=== PATIENT | female | born 1945 | race Caucasian/White ===

== ENCOUNTER 2016-11-11 07:49 | Day surgery (SDC) | payer MEDICARE ==
[~2016-11-11] VITALS: Ht 149.9 cm; Wt 65.8 kg
[~2016-11-11 07:49] MED LIST: AMLODIPINE BESYL5 MG PO; ASPIRIN CHEWABL81 MG PO; ATORVASTATIN CA10 MG PO; AUGMENTIN875TAB PO; BACLOFEN10 MG PO; BACTRIM DS1 TAB PO; BENADRYL ALLERG25 M1 PO; BENZONATATE200 MG PO; CELEXA20 MG PO; CELEXA40 M1 PO; CHOLESTYRAMINE4 G1 PO; CITALOPRAM10 MG PO; CITALOPRAM20 MG PO; CITALOPRAM40 MG PO; CRESTOR20 MG PO; FLONASE NASAL50 MCG; FLORASTOR250 M1 PO; FLUTICASONE50 MCG; GINKGO BILOB30 M1 PO; LOSARTAN POT50 MG PO; MUCINEX600 MG PO; MULTI PO; NEXIUM40 M1 PO; OMEGA-3 FISH1000 MG PO; PHENERGAN12.5 MG/TA PO; PREDNISONE20 MG PO; PREVACID30 M1 PO; PROMETHAZINE12.5 MG PO; RANITIDINE150 M1 PO; TENIVAC1 ML IM; VITAMIN D32000 UNIT PO; ZETIA10 MG PO; ZOCOR20 M1 PO; ZOLOFT100 MG PO; ZOLOFT50 MG PO; [UNRECOGNIZED DRUG - OTHER]
[2016-11-11 10:03] VITALS: BP 135/60
== END 2016-11-11 10:20 | disposition home or self-care (01) ==
LOC: ENDO 07:49 → ORM 11:20 → ENDO 11:20 → ORM 17:15
PROVIDERS: ATTEND Internal Medicine Gastroenterology
PROC: 0DB48ZX Excision of Esophagogastric Junction, Via Natural or Artificial Opening Endoscopic, Diagnostic (ICD-10-PCS; principal; 2016-11-11)
PROC: 0DB68ZX Excision of Stomach, Via Natural or Artificial Opening Endoscopic, Diagnostic (ICD-10-PCS; 2016-11-11)
DX: R14.0 Abdominal distension (gaseous) (principal); R11.0 Nausea; K21.9 Gastro-esophageal reflux disease without esophagitis; K29.70 Gastritis, unspecified, without bleeding; K31.7 Polyp of stomach and duodenum; K44.9 Diaphragmatic hernia without obstruction or gangrene; I10 Essential (primary) hypertension; E78.00 Pure hypercholesterolemia, unspecified

== ENCOUNTER 2016-11-20 16:38 | Emergency (ER) | payer MEDICARE ==
[~2016-11-20] VITALS: Ht 149.9 cm; Wt 65.0 kg
[2016-11-20 17:20] LABS: HEMATOCRIT 39.8 % (37.0-47.0); HEMOGLOBIN 13.3 g/dl (12.0-16.0); IMMATURE GRANULOCYTES 0.4 % (0.0-1.0); MEAN CELL VOLUME 87.9 fL CALC (80.0-100.0); MEAN CORPUSCULAR HGB 29.4 pG CALC (26.0-32.0); MEAN CORPUSCULAR HGB CONC 33.4 g/L CALC (32.0-36.0); NEUT# 6.61 thou/uL (2.00-7.15); RED BLOOD COUNT 4.53 mill/uL (4.20-5.60); RED CELL DISTRI WIDTH 13.3 % (11.5-15.5)
[2016-11-20 17:21] LABS: URINE BILIRUBIN - DIPSTICK NEGATIVE (NEGATIVE); URINE BLOOD DIPSTICK NEGATIVE (NEGATIVE); URINE CLARITY CLEAR; URINE COLOR YELLOW; URINE GLUCOSE - DIPSTICK NEGATIVE (NEGATIVE); URINE KETONE TRACE mg/dL (NEGATIVE); URINE NITRITE - DIPSTICK NEGATIVE (Negative); URINE PROTEIN - DIPSTICK NEGATIVE (NEG-TRACE); URINE UROBILINOGEN - DIPSTICK 0.2 E.U./dL (0.2)
[2016-11-20 17:40] LABS: URINE LEUK ESTERASE SMALL (NEGATIVE)
[2016-11-20 17:48] LABS: ALBUMIN 4.5 g/dL (3.2-5.0); ALKALINE PHOSPHATASE 57 u/l (38-126); AMYLASE 57 u/l (30-110); ANION GAP 17 (6-22 (CALC)); BILIRUBIN, TOTAL 0.4 mg/dL (0.0-1.4); BUN 14 mg/dL (8-23); BUN/CREATININE RATIO 17 (12-20 (CALC)); CALCIUM 9.6 mg/dL (8.4-10.2); CARBON DIOXIDE 24 mmol/l (22-30); CHLORIDE 103 mmol/l (95-108); CREATININE 0.8 mg/dL (0.5-1.0); GFR > 60 ML/MIN (>=60 (CALC)); GFR FOR AFR.AMER. > 60 ML/MIN (>=60 (CALC)); GLUCOSE 126 mg/dL (82-115); LIPASE 186 u/l (23-300); POTASSIUM 3.9 mmol/l (3.5-5.1); SGOT/AST 27 u/l (9-36); SGPT/ALT 42 u/l (11-66); SODIUM 139 mmol/l (137-146); TOTAL PROTEIN 7.6 g/dL (6.3-8.2); URINE SQUAMOUS EPITHELIAL CELL FEW EPI/hpf (0-FEW)
[2016-11-20 17:59] LABS: MYOGLOBIN 30 ng/mL (0 - 62)
[2016-11-20] MEDS ORDERED: METRONIDAZOL500 MG PO (18:33)
[2016-11-20] MEDS ORDERED: ULTRAM50 M1 PO (18:33)
[2016-11-20] MEDS ORDERED: ZOFRAN ODT4 MG PO (18:33)
[2016-11-20] MEDS ORDERED: CIPROFLOXACN500 MG PO (18:41)
[2016-11-20 18:50] VITALS: BP 136/90
== END 2016-11-20 18:54 | disposition home or self-care (01) ==
LOC: ED 16:38
PROVIDERS: Emergency Medicine
DX: R10.31 Right lower quadrant pain (principal); R10.32 Left lower quadrant pain; K57.30 Diverticulosis of large intestine without perforation or abscess without bleeding; N39.0 Urinary tract infection, site not specified; R11.0 Nausea

== ENCOUNTER 2016-12-31 09:24 | Emergency (ER) | payer MEDICARE ==
[~2016-12-31] VITALS: Ht 149.9 cm; Wt 70.0 kg
[~2016-12-31 09:24] MED LIST changes: +CIPROFLOXACN500 MG PO; +METRONIDAZOL500 MG PO; +ULTRAM50 M1 PO; +ZOFRAN ODT4 MG PO
[2016-12-31] MEDS ORDERED: ZOVIRAX51 EX (10:03)
[2016-12-31] MEDS ORDERED: FAMVIR500 MG PO (10:03)
[2016-12-31 10:10] VITALS: BP 122/82
== END 2016-12-31 10:10 | disposition home or self-care (01) ==
LOC: ED 09:24
DX: B02.9 Zoster without complications (principal); I10 Essential (primary) hypertension; K21.9 Gastro-esophageal reflux disease without esophagitis; E78.00 Pure hypercholesterolemia, unspecified; F32.9 Major depressive disorder, single episode, unspecified

== ENCOUNTER 2017-02-24 07:24 | Day surgery (SDC) | payer MEDICARE ==
[~2017-02-24] VITALS: Ht 149.9 cm; Wt 63.5 kg
[~2017-02-24 07:24] MED LIST changes: +FAMVIR500 MG PO; +ZOVIRAX51 EX
[2017-02-24 09:31] VITALS: BP 104/73
== END 2017-02-24 09:40 | disposition home or self-care (01) ==
LOC: ENDO 07:24 → ORM 09:40 → ENDO 10:10 → ORM 10:10
PROVIDERS: ATTEND Internal Medicine Gastroenterology
PROC: 0DBN8ZX Excision of Sigmoid Colon, Via Natural or Artificial Opening Endoscopic, Diagnostic (ICD-10-PCS; principal; 2017-02-24)
PROC: 0DBP8ZX Excision of Rectum, Via Natural or Artificial Opening Endoscopic, Diagnostic (ICD-10-PCS; 2017-02-24)
PROC: 0DBH8ZX Excision of Cecum, Via Natural or Artificial Opening Endoscopic, Diagnostic (ICD-10-PCS; 2017-02-24)
DX: K57.30 Diverticulosis of large intestine without perforation or abscess without bleeding (principal); K64.4 Residual hemorrhoidal skin tags; D12.5 Benign neoplasm of sigmoid colon; Q43.9 Congenital malformation of intestine, unspecified; K62.1 Rectal polyp; K63.89 Other specified diseases of intestine; K64.8 Other hemorrhoids; R14.0 Abdominal distension (gaseous); K44.9 Diaphragmatic hernia without obstruction or gangrene; K29.70 Gastritis, unspecified, without bleeding; K21.9 Gastro-esophageal reflux disease without esophagitis; I10 Essential (primary) hypertension; E78.00 Pure hypercholesterolemia, unspecified; Z86.010 Personal history of colon polyps

== ENCOUNTER 2018-08-03 08:14 | Observation (INO) | payer MEDICARE ==
[~2018-08-03] VITALS: Ht 149.9 cm; Wt 64.1 kg
--- NOTE | 2018-08-03 08:15 | NUR ---
PT BROUGHT TO RM 14 VIA WHEELCHAIR WITH C/O OF SOB,
[2018-08-03 08:38] LABS: HEMATOCRIT 42.1 % (37.0-47.0); HEMOGLOBIN 14.3 g/dl (12.0-16.0); IMMATURE GRANULOCYTES 0.2 % (0.0-5.0); MEAN CELL VOLUME 86.8 fL CALC (80.0-100.0); MEAN CORPUSCULAR HGB 29.5 pG CALC (26.0-32.0); NEUT# 3.15 thou/uL (2.00-7.15); RED BLOOD COUNT 4.85 mill/uL (4.20-5.60); RED CELL DISTRI WIDTH 12.6 % (11.5-15.5)
[2018-08-03] MEDS ORDERED: DEXILANT30 MG PO (08:47)
[2018-08-03 08:50] LABS: ALBUMIN 4.4 g/dL (3.2-5.0); ALKALINE PHOSPHATASE 50 u/l (38-126); ANION GAP 15 (6-22 (CALC)); BILIRUBIN, TOTAL 0.6 mg/dL (0.0-1.4); BUN 13 mg/dL (8-23); BUN/CREATININE RATIO 23 (12-20 (CALC)); CARBON DIOXIDE 22 mmol/l (22-30); CHLORIDE 104 mmol/l (95-108); CREATININE 0.5 mg/dL (0.5-1.0); GFR > 60 ML/MIN (>=60 (CALC)); GFR FOR AFR.AMER. > 60 ML/MIN (>=60 (CALC)); POTASSIUM 4.1 mmol/l (3.5-5.1); SGOT/AST 25 u/l (9-36); SODIUM 137 mmol/l (137-146)
[2018-08-03 09:02] LABS: MYOGLOBIN 31 ng/mL (0 - 62)
--- NOTE | 2018-08-03 09:15 | NUR ---
patient resting states interrmittent chest pain 3 on 0-10 scale
--- NOTE | 2018-08-03 09:42 | NUR ---
patient ambulated to restroom without difficulty. patient denies any chest pain at this time
--- NOTE | 2018-08-03 10:49 | NUR ---
REPORT CALLED TO [facility] AND PATIENT TRANSPORTED
--- NOTE | 2018-08-03 11:01 | NUR ---
PT ARRIVED ON FLOOR @ 11:00; VIA W/C ACCOMPANIED BY HIMANSHU KUMAR AND PT'S SIGNIFICANT OTHER; PT AMBULATED WITH STEADY GAIT ON DIGITAL SCALE; WT OBTAINED; RESP EVEN AND UNLABORED; TELE IN PLACE; PT REPORT NO PAIN; PT ORIENT TO ROOM AND CALL [facility] SYSTEM; STATES SHES HUNGRY; WILL CONTINUE TO MONITOR.
[2018-08-03 11:19] VITALS: BP 163/93
[2018-08-03 11:23] LABS: URINE BILIRUBIN - DIPSTICK NEGATIVE (NEGATIVE); URINE BLOOD DIPSTICK NEGATIVE (NEGATIVE); URINE COLOR YELLOW; URINE GLUCOSE - DIPSTICK NEGATIVE (NEGATIVE); URINE KETONE NEGATIVE (NEGATIVE); URINE LEUK ESTERASE NEGATIVE (NEGATIVE); URINE NITRITE - DIPSTICK NEGATIVE (Negative); URINE PROTEIN - DIPSTICK NEGATIVE (NEG-TRACE); URINE SPECIFIC GRAVITY <=1.005; URINE UROBILINOGEN - DIPSTICK 0.2 E.U./dL (0.2)
--- NOTE | 2018-08-03 12:48 | NUR ---
PT SITTING UP IN BED EATING LUNCH AND LOOKING AT HER PHONE; STATES SHE'S VERY HUNGRY; EXPLAINED ZACKARY KRISHNAN AND SCD; PT VOICE UNDERSTANDING; VOICE NO PAIN; SR 69 ON MONITOR; CALL CHUA IN REACH; SAFETY PRECAUTION REINFORCE;
[2018-08-03 15:25] VITALS: BP 137/88
--- NOTE | 2018-08-03 16:08 | NUR ---
DR YUN AND EVIN, AT BEDSIDE TO DISCUSS POC; PT LAYING IN BED WITH HOB ELEVATED, RESP EVEN AND UNLABORED; IV SITE APPEARS HEALTHY; CALL [facility]UA IN REACH.
--- NOTE | 2018-08-03 19:12 | NUR ---
PT IS IN BED W/ AT BEDSIDE. NO S/O DISTRESS NOTED, PT DENIES ANY PAIN/N/V AT THIS TIME. BEDSIDE REPORT RECEIVED,POC DISCUSSED AND PT ENCOURAGED TO CALL NEEDS ARISE OR ANY SYMPTOMS ARISE. CALL LIGHT AT BEDSIDE.
[2018-08-03 19:15] VITALS: BP 136/77
--- NOTE | 2018-08-03 20:47 | NUR ---
PT ASSESSED, PT DENIES PAIN/N/V, REPORTS "SMALL GASSY FEELING TWINGES UP IN CHEST ONCE IN AWHILE." LUNG SOUNDS ARE CLEAR, ABD SOFT TENDER TO LOWER QUAD BILAT/PT REPORTS THIS IS HER NORMAL, REPORTS BMX1 TODAY NORMAL, DENIES DIFFICULTY URINATING, LOCX4, NEURO'S INTACT, SKIN INTACT, NO EDEMA NOTED. ZACKARY'S AND SCD'S ARE ON. POC AND LABS DISCUSSED W/PT. PT DENIES ANY OTHER QUESTIONS AT THIS TIME. CALL LIGHT AT BEDSIDE AND PT OFFERED SNACK/PROVIDED. PT ENCOURAGED TO CALL IF ANY OTHER SYMPTOMS OR NEEDS ARISE.
[2018-08-04] VITALS: BP 133/83
--- NOTE | 2018-08-04 02:10 | NUR ---
PT APPEARS TO BE SLEEPING AT THIS TIME. NO S/O DISTRESS, CALL LIGHT AT SIDE. DENIES ANY NEEDS, DRESSING TO WOUND VAC APPEARS INTACT WITH SUCTION ON AT 125.
[2018-08-04 04:40] VITALS: BP 148/50
--- NOTE | 2018-08-04 06:00 | NUR ---
LAB IN W/PT AT THIS TIME, PT DENIES ANY PAIN/N/V AT THIS TIME. NO S/O DISTRSES NOTED, PT REPORTS HAVING BEEN SLEEPING SOUNDLY W/O DISTRESS, PAIN OR SOB.
[2018-08-04 06:38] LABS: CHOLESTEROL HDL RATIO 3.8 (<4.4 (CALC))
--- NOTE | 2018-08-04 07:10 | NUR ---
PT REPORT RECIEVED FROM HIMANSHU WILSON. PT RESTING IN BED. NO S/S OF DISTRESS. CALL LIGHT IN REACH. WILL CONTINUE TO MONITOR.
[2018-08-04 07:53] VITALS: BP 158/85
--- NOTE | 2018-08-04 07:53 | NUR ---
PT A/OX3. SPEECH IS CLEAR. NO C/O CHEST PAIN AT THIS TIME. RESP EVEN AND UNLABORED. LUNG SOUNDS CLEAR. TELE IN PLACE. BOWEL SOUNDS ACTIVE X4. STRONG RADIAL AND PEDAL PULSES. #20 RAC SL. FLUSHED AND PATENT. SCD AND ZACKARY HOSES IN PLACE. SKIN INTACT. PT DENIES ANY NEEDS AT THIS TIME. POC DISCUSSED. SAFETY PRECAUTIONS IN PLACE. CALL LIGHT IN REACH. WILL CONTINUE TO MONITOR.
--- NOTE | 2018-08-04 11:05 | NUR ---
PT RESTNG IN BED. NO C/O PAIN OR NEEDS. RESP EVEN AND UNLABORED. TELE IN PLACE. CALL LIGHT IN REACH. WILL CONTINUE TO MONITOR.
[2018-08-04 11:22] VITALS: BP 158/81
--- NOTE | 2018-08-04 11:56 | NUR ---
KATH LEHMAN IN TO SEE PT
--- NOTE | 2018-08-04 15:00 | NUR ---
D/C INSTRUCTIONS DISCUSSED W/PT. PT STATES UNDERSTANDING. IV REMOVED. CATHETER INTACT. PT DRESSED AND READY TO GO. IESHA SALAZAR TO WHEEL PATIENT DOWNSTAIRS.
--- NOTE | 2018-08-04 15:08 | NUR ---
Discharge instructions given. Patient verbalizes understanding of same. Discharged in \stable condition via Wheelchair to Home with family. All belongings sent with pt.
== END 2018-08-04 15:10 | disposition home or self-care (01) ==
LOC: ED 08:14 → ED-I 08:52 → ED 08:52 → ED-I 09:20 → ED 09:51 → MS2 09:52
PROVIDERS: Emergency Medicine; Nurse Practitioner Family; ADMIT Internal Medicine Nephrology; ATTEND Internal Medicine Nephrology
DX: R07.9 Chest pain, unspecified (principal); I10 Essential (primary) hypertension; K21.9 Gastro-esophageal reflux disease without esophagitis; E78.5 Hyperlipidemia, unspecified; K58.9 Irritable bowel syndrome, unspecified; K44.9 Diaphragmatic hernia without obstruction or gangrene; M19.90 Unspecified osteoarthritis, unspecified site; G89.29 Other chronic pain; M54.9 Dorsalgia, unspecified; F41.8 Other specified anxiety disorders; Z79.82 Long term (current) use of aspirin
CPT/HCPCS: S0164

== ENCOUNTER 2018-10-03 13:06 | Emergency (ER) | payer MEDICARE ==
[~2018-10-03] VITALS: Ht 149.9 cm; Wt 65.0 kg
[~2018-10-03 13:06] MED LIST changes: +DEXILANT30 MG PO
[2018-10-03 13:56] LABS: HEMATOCRIT 39.6 % (37.0-47.0); HEMOGLOBIN 13.2 g/dl (12.0-16.0); IMMATURE GRANULOCYTES 0.3 % (0.0-5.0); MEAN CELL VOLUME 86.1 fL CALC (80.0-100.0); MEAN CORPUSCULAR HGB 28.7 pG CALC (26.0-32.0); MEAN CORPUSCULAR HGB CONC 33.3 g/L CALC (32.0-36.0); NEUT# 4.47 thou/uL (2.00-7.15); RED BLOOD COUNT 4.6 mill/uL (4.20-5.60); RED CELL DISTRI WIDTH 14.7 % (11.5-15.5)
[2018-10-03 14:12] LABS: ANION GAP 16 (6-22 (CALC)); BUN 14 mg/dL (8-23); BUN/CREATININE RATIO 23 (12-20 (CALC)); CARBON DIOXIDE 22 mmol/l (22-30); CHLORIDE 102 mmol/l (95-108); CREATININE 0.6 mg/dL (0.5-1.0); GFR > 60 ML/MIN (>=60 (CALC)); GFR FOR AFR.AMER. > 60 ML/MIN (>=60 (CALC)); POTASSIUM 4.1 mmol/l (3.5-5.1); SODIUM 136 mmol/l (137-146)
[2018-10-03] MEDS ORDERED: AMLODIPINE5 MG PO (14:36)
[2018-10-03 14:58] VITALS: BP 145/98
== END 2018-10-03 15:11 | disposition home or self-care (01) ==
LOC: ED 13:06
PROVIDERS: Family Medicine
DX: I10 Essential (primary) hypertension (principal); R51 Headache

== ENCOUNTER 2022-06-15 17:43 | Emergency (ER) | payer MEDICARE ==
[~2022-06-15] VITALS: Ht 149.9 cm; Wt 63.6 kg
[2022-06-15] VITALS (9 sets, daily range): BP systolic 134–173; BP diastolic 90–105
[~2022-06-15 17:43] MED LIST changes: +AMLODIPINE5 MG PO
[2022-06-15 19:16] LABS: HEMATOCRIT 39.9 % (37.0-47.0); HEMOGLOBIN 13.4 g/dl (12.0-16.0); IMMATURE GRANULOCYTES 0.4 % (0.0-5.0); MEAN CELL VOLUME 90.9 fL CALC (80.0-100.0); MEAN CORPUSCULAR HGB 30.5 pG CALC (26.0-32.0); MEAN CORPUSCULAR HGB CONC 33.6 g/dL CAL (32.0-36.0); NEUT# 4.82 thou/uL (2.00-7.15); RED BLOOD COUNT 4.39 mill/uL (4.20-5.60); RED CELL DISTRI WIDTH 12.8 % (11.5-15.5)
[2022-06-15 19:17] LABS: URINE BILIRUBIN - DIPSTICK NEGATIVE (NEGATIVE); URINE BLOOD DIPSTICK NEGATIVE (NEGATIVE); URINE COLOR YELLOW; URINE GLUCOSE - DIPSTICK NEGATIVE (NEGATIVE); URINE KETONE NEGATIVE (NEGATIVE); URINE LEUK ESTERASE TRACE (NEGATIVE); URINE PROTEIN - DIPSTICK NEGATIVE (NEG-TRACE); URINE UROBILINOGEN - DIPSTICK 0.2 E.U./dL (0.2)
[2022-06-15 19:19] LABS: URINE NITRITE - DIPSTICK NEGATIVE (Negative)
[2022-06-15 19:30] LABS: ALBUMIN 4.5 g/dL (3.2-5.0); ALKALINE PHOSPHATASE 31 u/l (38-126); ANION GAP 15 (6-22 (CALC)); BUN 14 mg/dL (8-23); BUN/CREATININE RATIO 23 (12-20 (CALC)); CARBON DIOXIDE 25 mmol/l (22-30); CHLORIDE 101 mmol/l (95-108); CREATININE 0.6 mg/dL (0.5-1.0); GFR FOR AFR.AMER. > 60 ML/MIN (>=60 (CALC)); GFR OTHER RACES > 60 ML/MIN (>=60 (CALC)); POTASSIUM 4.2 mmol/l (3.5-5.1); SGOT/AST 36 u/l (9-36); SODIUM 136 mmol/l (137-146); TOTAL PROTEIN 7.3 g/dL (6.3-8.2)
[2022-06-15 19:34] LABS: BILIRUBIN, TOTAL 0.3 mg/dL (0.0-1.4)
== END 2022-06-15 22:45 | disposition home or self-care (01) ==
LOC: ED 17:43
PROVIDERS: Family Medicine
DX: R42 Dizziness and giddiness (principal); I10 Essential (primary) hypertension; E11.9 Type 2 diabetes mellitus without complications; K21.9 Gastro-esophageal reflux disease without esophagitis; E78.5 Hyperlipidemia, unspecified; F32.A Depression, unspecified; Z20.822 Contact with and (suspected) exposure to COVID-19

== ENCOUNTER 2024-07-24 17:21 | Observation (INO) | payer MEDICARE ==
[~2024-07-24] VITALS: Ht 149.9 cm; Wt 138.2 kg
[2024-07-24] VITALS (23 sets, daily range): BP systolic 122–188; BP diastolic 76–118
[2024-07-24] MEDS ORDERED: MORPHINE SULFATE 4 MG/ML VIAL IV ONE (18:15)
[2024-07-24 18:37] LABS: BASO% 0.6 % (0-3); EOS% 1.7 % (0-8); HEMATOCRIT 40.9 % (37.0-47.0); HEMOGLOBIN 13.3 g/dl (12.0-16.0); IMMATURE GRANULOCYTES 1.3 % (0.0-5.0); LYMPH% 19.5 % (15-41); MEAN CELL VOLUME 91.1 fL CALC (80.0-100.0); MEAN CORPUSCULAR HGB 29.6 pG CALC (26.0-32.0); MEAN CORPUSCULAR HGB CONC 32.5 g/dL CAL (32.0-36.0); MONO% 8.1 % (2-13); NEUT# 7.08 thou/uL (2.00-7.15); NEUT% 68.8 % (42-76); RED BLOOD COUNT 4.49 mill/uL (4.20-5.60); RED CELL DISTRI WIDTH 13.6 % (11.5-15.5)
[2024-07-24 18:52] LABS: ALBUMIN 4.6 g/dL (3.2-5.0); BILIRUBIN, TOTAL 0.6 mg/dL (0.02-1.3); CREATININE 0.6 mg/dL (0.5-1.0); POTASSIUM 3.5 mmol/l (3.5-5.1); TOTAL PROTEIN 7.5 g/dL (6.3-8.2)
[2024-07-24 18:53] LABS: ACT PARTIAL THROMBO TIME 22.6 SECONDS (20.0-32.5); PROTHROMBIN TIME 10.6 SECONDS (9.0-12.5)
[2024-07-24] MEDS ORDERED: COZAAR25 MG PO (20:45)
[2024-07-24] MEDS ORDERED: AMLODIPINE BES2.5 MG PO (20:45)
[2024-07-24] MEDS ORDERED: ONDANSETRON HCl 4 MG/2 ML SDV IV ONE (20:45)
[2024-07-24] MEDS ORDERED: ACETAMINOPHEN 325 MG/TAB PO PRN (21:25)
[2024-07-24] MEDS ORDERED: MAGNESIUM HYDROXIDE 30 ML UDC PO PRN (21:25)
[2024-07-24] MEDS ORDERED: SODIUM CHLORIDE 0.9% 1,000 ML IV PRN (21:25)
[2024-07-24] MEDS ORDERED: traMADol HCL 50 MG/TAB PO PRN (21:25)
[2024-07-24] MEDS ORDERED: ALBUTEROL SULFATE 8 GM INH IN PRN (22:40)
[2024-07-25] VITALS: BP 145/94
[2024-07-25 04:00] VITALS: BP 164/94
[2024-07-25 07:10] VITALS: BP 152/88
[2024-07-25] MEDS ORDERED: ESCITALOPRAM 10 MG/TAB PO SCH (09:00)
[2024-07-25] MEDS ORDERED: amLODIPine BESYLATE 2.5 MG/TAB PO SCH (09:00)
[2024-07-25] MEDS ORDERED: LOSARTAN Potassium 25 MG/TAB PO SCH (09:00)
[2024-07-25] MEDS ORDERED: ASPIRIN 81 MG/TAB PO SCH (09:00)
[2024-07-25] MEDS ORDERED: PANTOPRAZOLE SODIUM Sesquihydr 40 MG/TAB PO SCH (09:00)
[2024-07-25 16:05] VITALS: BP 104/74
[2024-07-25 19:29] VITALS: BP 118/71
[2024-07-25] MEDS ORDERED: ENOXAPARIN SODIUM 40 MG/0.4 ML SYR SC SCH (21:00)
[2024-07-26 04:00] VITALS: BP 144/90
[2024-07-26] MEDS ORDERED: IBUPROFEN 800 MG/TAB PO PRN (06:35)
[2024-07-26 07:23] VITALS: BP 126/85
[2024-07-26] MEDS ORDERED: IBUPROFEN 600 MG/TAB PO PRN (08:33)
[2024-07-26 08:38] VITALS: BP 126/85
[2024-07-26] MEDS ORDERED: CIPROFLOXACIN 250 MG/TAB PO SCH (13:00)
== END 2024-07-26 14:57 | disposition left against medical advice (07) ==
LOC: ED 17:21 → ED-I 20:08 → ED 20:41 → MS2 20:42
PROVIDERS: Emergency Medicine; ADMIT Internal Medicine; ATTEND Internal Medicine
DX: S32.592A Other specified fracture of left pubis, initial encounter for closed fracture (principal); R30.0 Dysuria; R39.15 Urgency of urination; I10 Essential (primary) hypertension; E11.9 Type 2 diabetes mellitus without complications; K21.9 Gastro-esophageal reflux disease without esophagitis; E78.5 Hyperlipidemia, unspecified; F41.8 Other specified anxiety disorders; V86.45XA Person injured while boarding or alighting from a 3- or 4- wheeled all-terrain vehicle (ATV), initial encounter
CPT/HCPCS: J1650; J2405